=== PATIENT | female | born 1930 | race Caucasian/White ===

== ENCOUNTER → 2016-09-08 | Outpatient (CLI) | payer MEDICARE ==
[~2016-09-08] MED LIST: ASPIR-LOW81 MG PO; ATENOLOL25 MG PO; ATENOLOL50 MG PO; ATIVAN0.5 MG PO; BIOTENE ORAL44.3 ML MM; CALCIUM 600600 M2 PO; CARAFATE1 G1 PO; COMPLEXED POTAS99 MG PO; LASIX20 MG PO; LASIX40 MG PO; LISINOPRIL5 MG PO; MACROBID100 M1 PO; MULTI VITAMINS1 TAB PO; PERCOCET 325 MG1 TA2 PO; POTASSIUM '99'620 MG PO; POTASSIUM CHLO10 ME5 PO; PROTONIX40 MG PO; VITAMIN D31000 IU PO
== END | disposition home or self-care (01) ==
LOC: CT 03:14
DX: K57.30 Diverticulosis of large intestine without perforation or abscess without bleeding (principal); C15.9 Malignant neoplasm of esophagus, unspecified; I70.0 Atherosclerosis of aorta; M81.0 Age-related osteoporosis without current pathological fracture

== ENCOUNTER 2017-09-19 14:58 | Inpatient (IN) | payer OTHER ==
[~2017-09-19] VITALS: Ht 152.4 cm; Wt 51.0 kg
--- NOTE | ~2017-09-19 | CON ---
[place], [place] REPORT OF CONSULTATION NAME: ERYN PRICE [facility] #: [id number] UNIT #: [id number] ROOM: 508 DOCTOR: IGNACIO VILLARREAL MD BIRTHDATE: [birth year] DOS: 09/20/2017 INPATIENT CONSULT NOTE CHIEF COMPLAINT: Right hip pain. HISTORY OF PRESENT ILLNESS: This is a pleasant 86-year-old female, who had a fall last evening at home. She came into the Emergency Room where she was diagnosed with a right hip intertrochanteric hip fracture. She was using a walker at home last evening and was taking a few steps backwards when she fell. She denies any lightheadedness. She did not strike her head nor lose consciousness. She got pain in the right groin and over the lateral aspect of the hip. It is moderate, about 5 on a scale of 1-10, 10 being the worst. Her daughter is in the room with her this morning. She does have some pain in the right knee as well. No pain in the ankle. No pain in the left leg. She does have a history of esophageal cancer and she has lost about 70 pounds in the last year. She does use a walker at all times to get around. She also has a history of osteoporosis, prior pelvic fracture, congestive heart failure, rheumatoid arthritis, urinary tract infection. She has not used tobacco products. PAST MEDICAL HISTORY AND SURGICAL HISTORY: 1. Congestive heart failure. 2. Status post lumbar kyphoplasty. 3. History of pelvic fracture. 4. Hiatal hernia. 5. History of bleeding ulcer. 6. History of esophageal cancer status post radiation treatments with possible recurrence of cancer. 7. Hypertension. 8. Mitral regurgitation. 9. Mitral valve prolapse. 10. Osteoporosis. 11. Rheumatoid arthritis. 12. History of urinary tract infection. 13. Status post cholecystectomy. 14. Status post hysterectomy. SOCIAL HISTORY: She lives at home. She uses a walker. No tobacco use. No illicit drug use. She is retired. ALLERGIES: To medicine, ROFECOXIB and FENTANYL. REVIEW OF SYSTEMS: She does have weight loss as noted above. No unexpected weight gain. No fevers, no chills, no fatigue. No anxiety, no depression. No hematuria. PHYSICAL EXAMINATION: GENERAL: Her general appearance is well. She is oriented to person, place and time. Her mood is euthymic. Her affect is appropriate. VITAL SIGNS: Blood pressure is 145/65. Pulse is 95. She is afebrile at 98.0. [place], [place] REPORT OF CONSULTATION NAME: ERYN PRICE UNIT #: [id number] ROOM: 508 DOCTOR: IGNACIO VILLARREAL MD BIRTHDATE: [birth year] Examining the right hip, the skin is intact about the right hip and right knee. Thigh is soft. Calf is soft and nontender. Aruna's signs negative. She can flex and extend the right ankle against resistance. She grossly feels light touch sensation throughout her toes. No tenderness to palpation over the left knee, left ankle, and left hip. X-rays of the right hip and knee are reviewed showing osteopenia, right hip intertrochanteric fracture. LABORATORY DATA: Reviewed. White count 6.6, H and H 10 and 32, platelets are 122. INR is 1.0. Albumin is 3.0. UA is reviewed showing 1+ bacteria. ASSESSMENT: An 86-year-old female with multiple medical comorbidities with right hip intertrochanteric fracture for intramedullary nailing. The patient does have intertrochanteric hip fracture. I reviewed this with the patient and with the daughter. I talked to them about interventions. I talked about nonoperative management. Risks here would include bedsores, blood clots, emboli, ulcerations, pneumonia, and . Surgical option would be fixation with intramedullary nail. She is not a candidate for a hemiarthroplasty as this is not the fracture pattern for that surgery. The surgical plan will be to make an incision and to insert a guidewire down the middle of the bone after reducing the fracture. I then would insert the nail over the wire and locked it with a lag screw into the femoral head. Risks of the surgery include blood clot, pulmonary embolus, infection, hardware failure, nonunion, malunion, need for revision surgery, permanent limp, loss of ability to ambulate, , and other risks. I think the risk of is at least 30% if not higher at 1 year based on the literature of hip fracture survival. She is probably above 30% given the number of medical comorbidities. She is at high risk for a nonunion or malunion and hardware failure based on the fact that she got osteoporosis, possible recurrence of cancer, low albumin suggesting malnourishment, and she is an elderly female. All of these work against biology of fracture healing and I explained that to the patient and to the daughter. Despite all of the risks, nonoperative management is really not a viable option for her because it would really condemn her to being in bed for a long time, which would be probably mortal for her. The patient and the daughter did have the opportunity to ask me questions. They understand the risks. They would like to proceed with the surgery. After a full risks and benefit discussion, informed consent was signed at the bedside. The daughter signed for her mom as the patient is unable to sign due to her poor eyesight and poor flatwork tier ability. I did explain to the patient and to the family prior to signing surgical consent that I am here in [place] [address] Colon, my partner, is here the other days. Therefore, if they have a problem, it is possible that I [place], [place] REPORT OF CONSULTATION NAME: ERYN PRICE UNIT #: [id number] ROOM: 508 DOCTOR: IGNACIO VILLARREAL MD BIRTHDATE: [birth year] am not in town and that I am in [place], [place] where I spent the rest of my time. They will see Dr. Colon in that case. There are times when Dr. Colon is not here and there is no orthopedic coverage in which case they may need to be transferred to another hospital. Family understands this, they understand who I am and that I am only here 1 week per month. I did give them my cell phone number, , so that they can contact me at any time. Certainly, whether I am in town or not, I can be available to them to help triage problems and answer questions they may have. Family is comfortable with me proceeding with the surgery today. Ignacio Villarreal MD CM:CONSTR:REPORT OF CONSULTATION 0919 09/21/17 0053 interface
--- NOTE | ~2017-09-19 | PR ---
[place], [place] PROGRESS NOTE NAME: ERYN PRICE UNIT #: [id number] ROOM: 508 DOCTOR: SUREKHA VILLARREAL MD BIRTHDATE: [birth year] DOS: 09/21/2017 SUBJECTIVE: The patient did well overnight. She is resting comfortably in bed. Daughter is at the bedside. OBJECTIVE: VITAL SIGNS: This morning are stable. Temperature is 97.5. Pulse is 113. Blood pressure 108/54. EXTREMITIES: I examined the right thigh. Thigh is soft. Dressing is clean and dry. Distally, she can flex and extend the toes and ankle. Toes are warm and well perfused. LABORATORY DATA: White count is 9.7. H and H are 7.4 and 23.3, which are decreased from 10 and 32. Platelets are 104. ASSESSMENT: An 86-year-old female status post right hip intramedullary nailing, postop day #1. PLAN: 1. Perform dressing change on Sunday, 09/24. Replace existing dressing with a clean and dry dressing. This should be changed once daily beginning on Sunday, 09/24. 2. Weightbearing as tolerated, right leg. 3. Physical therapy to work with the patient. 4. DVT prophylaxis with Lovenox 40 mg subcutaneously daily for 3 weeks. 5. Finished 24 hours of IV antibiotics this afternoon. 6. Follow up in Orthopedic Surgery Clinic the week of 10/08 to 10/12 for repeat x-rays and clinical exam. Please call to make an appointment. I reviewed this plan with the sister and the patient. They are comfortable with it. My cell phone number is [phone]. Anyone is welcome to contact me with any questions about this patient's care. I am not here this weekend and I explained that to the patient and the family, but I am available by phone for questions. [place], [place] PROGRESS NOTE NAME: ERYN PRICE UNIT #: [id number] ROOM: 508 DOCTOR: SUREKHA VILLARREAL MD BIRTHDATE: [birth year] Surekha Villarreal MD CM:PNTRANS [id number] SUREKHA VILLARREAL MD 09/21/17 2143 interface
--- NOTE | ~2017-09-19 | O ---
[place], [place] OPERATIVE NOTE NAME: ERYN PRICE [facility] #: [id number] UNIT #: [id number] ROOM: 508 DOCTOR: SUREKHA RODGERS MD BIRTHDATE: [birth year] DOS: 09/20/2017 PREOPERATIVE DIAGNOSIS: Right hip intertrochanteric femur fracture. POSTOPERATIVE DIAGNOSIS: Right hip intertrochanteric femur fracture. PROCEDURE: Insertion of intramedullary nail, right hip intertrochanteric fracture. IMPLANTS: Synthes, TFN nail, short, 130 degree angle, 13 mm diameter. ANESTHESIA: General. BLOOD LOSS: 75 mL. ATTENDING PHYSICIAN: Surekha Rodgers MD INDICATIONS: This is a pleasant 86-year-old female who had a fall last evening at home and suffered a right hip intertrochanteric femur fracture. Of note, the patient does have multiple medical comorbidities including congestive heart failure, history of lumbar spine compression fractures, multiple, suggesting significant osteopenia, history of esophageal cancer with possible recurrence, osteoporosis, and rheumatoid arthritis. This morning, I met with the patient and the family and I talked to him about the risks and benefits of surgical intervention. The risks are significant. The risks include , blood clot, pulmonary embolus, infection, nonunion, malunion, hardware failure, need for revision surgery, periprosthetic fracture, permanent limp, and other risks. The risk of is significant, especially given her age and medical comorbidities. I think it at least 30% if not higher. Family and the patient understands the risks. We did consider nonoperative management, but have declined in favor of surgery. I did explain to the family that I am here in [place] 1 week a month. The other weeks, I am in [place], [place]. Dr. Colon, my partner, is here most of the time in [place], however, there are times when [place] has no orthopedic surgery coverage. Therefore, it is possible the patient needs to be transferred if there is no coverage or she may see Dr. Colon if I am not here. Family was comfortable with this and they would like for me to proceed with the surgery. After full risks and benefit discussion, informed consent was signed for right hip intramedullary nailing. DESCRIPTION OF PROCEDURE: The patient was identified as the correct patient in preoperative holding area. She identified the right as the correct side. I marked the right hip. She was brought back to the operating theater where anesthesia was induced without complication. She was placed under the fracture table. The left leg was placed into a well leg mg. The right leg was placed in traction. A timeout was performed confirming correct patient, correct laterality and correct procedure. Antibiotics were given after a small [place], [place] OPERATIVE NOTE NAME: ERYN PRICE UNIT #: [id number] ROOM: 508 DOCTOR: SUREKHA RODGERS MD BIRTHDATE: [birth year] superficial skin incision was made. The procedure was stopped until antibiotics finished infusing. Then, the procedure continued. I made an incision in line with the femur, proximal to the greater trochanter and dissected down to the level of the tip of the trochanter. I used a starting awl to advance to the level of the lesser trochanter. I then checked AP and lateral fluoroscopy, which confirmed excellent fracture reduction and appropriate hardware positioning. I then passed the long guidewire down the femur. The awl was removed. The short nail was opened on the back table and was placed over the guidewire and seated to the appropriate depth. Of note, prior to skin incision, the fracture was reduced prior to any skin incision using combination of traction and internal rotation. AP and lateral fluoroscopy confirmed anatomic fracture reduction. With the nail seated, I then used the lateral targeting device to make an appropriate skin incision laterally and advanced a guide to bone. The guidewire was then drilled into the femoral head. I was a little bit anterior; therefore, the wire was redrilled to be near [id number] in the femoral head. The tip apex distance was definitely less than 25 mm. At this point, lateral cortex was opened with a drill. The guidewire was measured. It measured 90 mm. We then drilled to a depth of 90 mm. The helical blade was then inserted over the guidewire and seated to the appropriate depth. I checked AP and lateral fluoroscopy of the femoral head and the helical blade was fully within the femoral head. At this point, I used the targeting device and made an appropriate skin incision distally and inserted a single distal locking screw through the targeting device. At this point, I then performed compression across the fracture followed by tightening the set screw proximally. At this point, copious irrigation was then passed through all the wounds. Final AP and lateral fluoroscopy was taken confirming anatomic fracture reduction and appropriate hardware positioning. The wound was closed in layers. The deep layer was closed with 0 Vicryl interrupted. Subcutaneous tissues were closed with 2-0 Vicryl interrupted. The skin itself was closed with jose. A sterile dressing was applied. She tolerated the procedure well with no immediate complications. POSTOPERATIVE PLAN: 1. Weightbearing as tolerated, right leg. 2. Consult physical therapy for mobilization. 3. Continue IV antibiotics for 24 hours. 4. DVT prophylaxis, beginning tomorrow, 09/21/2017. 5. Leave surgical dressing on to at least 09/24/2016. 6. Follow up in Orthopedic surgery clinic in 2 weeks with repeat x-rays. I did give family my cell phone number [phone] so that they contact me at any time if they have any questions or problems. Since I am not in [place] 3 weeks of the month, I want to make sure they can reach me if there is an issue. The patient remains at high risk for complication. [place], [place] OPERATIVE NOTE NAME: ERYN PRICE UNIT #: [id number] ROOM: 508 DOCTOR: SUREKHA RODGERS MD BIRTHDATE: [birth year] Surekha Rodgers MD CM:OPRECORD:OPERATIVE NOTE 1600 10 SUREKHA RODGERS MD 09/20/17 171 interface
[~2017-09-19 14:58] MED LIST changes: +CALCIUM + D3 E1 EACH PO; -CALCIUM 600600 M2 PO
[2017-09-19 14:59] VITALS: BP 150/68
[2017-09-19] MEDS ORDERED: TRAMADOL HCL50 MG PO (15:34)
[2017-09-19] MEDS ORDERED: PRILOSEC20 M1 PO (15:35)
[2017-09-19 15:56] LABS: BASO % 0.7 % (0.0-1.0); EOS # 0.2 10*3/uL (0.0-0.4); EOS % 2.6 % (1.0-4.0); HEMATOCRIT 35.5 % (37.0-47.0); HEMOGLOBIN 11.4 g/dl (12.0-16.0); LYMPH # 0.8 10*3/uL (1.3-4.4); LYMPH % 12.3 % (27.0-41.0); MEAN CELL VOLUME 100.6 fl (81.0-99.0); MEAN CORPUSCULAR HGB 32.3 pg (27.0-31.0); MEAN CORPUSCULAR HGB CONC 32.1 g/dl (33.0-37.0); MEAN PLATELET VOLUME 10.3 fl (9.6-12.3); MONO # 0.5 10*3/uL (0.1-1.0); NEUT # 4.6 10*3/uL (2.3-7.9); NEUT % 75.4 % (47.0-73.0); PLATELET COUNT AUTOMATED 130 10*3/uL (130-400); RED BLOOD COUNT 3.53 10*6/uL (4.10-5.10); RED CELL DISTRI WIDTH 15.4 % (0-14.5); WHITE BLOOD COUNT 6.1 10*3/uL (4.8-10.8)
[2017-09-19 16:05] LABS: ACT PARTIAL THROMBO TIME 25.6 SECONDS (20.8-31.5)
[2017-09-19 16:13] LABS: ALBUMIN 3.4 gm/dl (3.1-4.5); ALKALINE PHOSPHATASE 109 U/L (45-117); BUN 12 mg/dl (7-24); CHLORIDE 104 mmol/L (98-107); CREATININE 0.56 mg/dL (0.55-1.02); LIPASE 98 U/L (73-393); POTASSIUM 3.8 mmol/L (3.5-5.1); SGOT/AST 25 IU/L (3-35); SGPT/ALT 17 U/L (12-78); SODIUM 137 mmol/L (136-145); TOTAL PROTEIN 7.4 gm/dL (6.4-8.2)
[2017-09-19 16:15] LABS: TROPONIN I < 0.015 ng/ml (<0.045)
[2017-09-19 16:58] VITALS: BP 151/71
[2017-09-19 17:30] LABS: BILIRUBIN NEGATIVE (NEGATIVE); BLOOD TRACE-INTACT (NEGATIVE); CLARITY SL CLOUDY (CLEAR); COLOR YELLOW (YELLOW); GLUCOSE NEGATIVE (NEGATIVE); KETONE TRACE (NEGATIVE); LEUKO ESTERASE NEGATIVE (NEGATIVE); NITRITE NEGATIVE (NEGATIVE); SPECIFIC GRAVITY >= 1.030 (1.005-1.030); UROBILINOGEN 0.2 E.U./dl (0.2-1.0)
[2017-09-19 17:34] VITALS: BP 138/60
[2017-09-19 17:38] LABS: BACTERIA 1+; MUCOUS 1+
[2017-09-19 18:15] VITALS: BP 135/60
[2017-09-19 19:07] VITALS: BP 170/76
[2017-09-20] VITALS (11 sets, daily range): BP systolic 94–165; BP diastolic 45–77
[2017-09-20 06:26] LABS: BASO % 0.3 % (0.0-1.0); EOS # 0.1 10*3/uL (0.0-0.4); EOS % 2.1 % (1.0-4.0); HEMATOCRIT 32.7 % (37.0-47.0); HEMOGLOBIN 10.5 g/dl (12.0-16.0); LYMPH # 0.9 10*3/uL (1.3-4.4); LYMPH % 13.7 % (27.0-41.0); MEAN CELL VOLUME 99.4 fl (81.0-99.0); MEAN CORPUSCULAR HGB 31.9 pg (27.0-31.0); MEAN CORPUSCULAR HGB CONC 32.1 g/dl (33.0-37.0); MONO # 0.7 10*3/uL (0.1-1.0); MONO % 10.9 % (3.0-9.0); NEUT # 4.8 10*3/uL (2.3-7.9); NEUT % 72.7 % (47.0-73.0); PLATELET COUNT AUTOMATED 122 10*3/uL (130-400); RED BLOOD COUNT 3.29 10*6/uL (4.10-5.10); RED CELL DISTRI WIDTH 15.4 % (0-14.5); WHITE BLOOD COUNT 6.6 10*3/uL (4.8-10.8)
[2017-09-20 06:54] LABS: ALKALINE PHOSPHATASE 98 U/L (45-117); BUN 10 mg/dl (7-24); CHLORIDE 103 mmol/L (98-107); CHOLESTEROL 152 mg/dL (<200); CREATININE 0.49 mg/dL (0.55-1.02); HDL CHOLESTEROL 64 mg/dl (40-60); LDL CHOLESTEROL 75 mg/dL (9-159); PHOSPHOROUS 3.5 mg/dL (2.5-4.9); SGOT/AST 25 IU/L (3-35); SGPT/ALT 17 U/L (12-78); SODIUM 137 mmol/L (136-145); TOTAL PROTEIN 6.9 gm/dL (6.4-8.2); TRIGLYCERIDES 67 mg/dl (<150); VLDL CHOLESTEROL 13 mg/dL (6-40)
[2017-09-20 06:59] LABS: THYROID STIM HORMONE (HS) 0.944 uIU/ml (0.358-4.75)
[2017-09-20 07:01] LABS: ACT PARTIAL THROMBO TIME 25.9 SECONDS (20.8-31.5)
[2017-09-20 08:12] LABS: VITAMIN D, 25-HYDROXY 17.1 ng/mL (30-100)
[2017-09-21] VITALS (20 sets, daily range): BP systolic 85–160; BP diastolic 33–82
[2017-09-21 06:21] LABS: BASO % 0.3 % (0.0-1.0); EOS % 0.2 % (1.0-4.0); LYMPH # 0.9 10*3/uL (1.3-4.4); LYMPH % 9.6 % (27.0-41.0); MEAN CELL VOLUME 102.2 fl (81.0-99.0); MEAN CORPUSCULAR HGB 32.5 pg (27.0-31.0); MEAN CORPUSCULAR HGB CONC 31.8 g/dl (33.0-37.0); MEAN PLATELET VOLUME 10.6 fl (9.6-12.3); MONO # 0.9 10*3/uL (0.1-1.0); NEUT # 7.8 10*3/uL (2.3-7.9); NEUT % 80.4 % (47.0-73.0); PLATELET COUNT AUTOMATED 104 10*3/uL (130-400); RED BLOOD COUNT 2.28 10*6/uL (4.10-5.10); RED CELL DISTRI WIDTH 15.9 % (0-14.5); WHITE BLOOD COUNT 9.7 10*3/uL (4.8-10.8)
[2017-09-21 06:34] LABS: HEMATOCRIT 23.3 % (37.0-47.0); HEMOGLOBIN 7.4 g/dl (12.0-16.0)
[2017-09-21 06:53] LABS: CHLORIDE 110 mmol/L (98-107); SODIUM 142 mmol/L (136-145)
[2017-09-21 07:01] LABS: ALBUMIN 2.3 gm/dl (3.1-4.5); ALKALINE PHOSPHATASE 83 U/L (45-117); BUN 16 mg/dl (7-24); CREATININE 0.78 mg/dL (0.55-1.02); PHOSPHOROUS 4.1 mg/dL (2.5-4.9); SGOT/AST 19 IU/L (3-35); SGPT/ALT 16 U/L (12-78); TOTAL PROTEIN 5.6 gm/dL (6.4-8.2)
[2017-09-21 16:42] LABS: HEMOGLOBIN 7.5 g/dl (12.0-16.0)
[2017-09-22] VITALS (10 sets, daily range): BP systolic 81–121; BP diastolic 37–68
[2017-09-22 00:54] LABS: HEMATOCRIT 24.9 % (37.0-47.0); HEMOGLOBIN 8.4 g/dl (12.0-16.0)
[2017-09-22 06:30] LABS: BASO % 0.2 % (0.0-1.0); EOS # 0.2 10*3/uL (0.0-0.4); EOS % 1.5 % (1.0-4.0); HEMATOCRIT 26.5 % (37.0-47.0); HEMOGLOBIN 8.5 g/dl (12.0-16.0); LYMPH # 1.1 10*3/uL (1.3-4.4); LYMPH % 8.4 % (27.0-41.0); MEAN CORPUSCULAR HGB 31.4 pg (27.0-31.0); MEAN CORPUSCULAR HGB CONC 32.1 g/dl (33.0-37.0); MEAN PLATELET VOLUME 10.7 fl (9.6-12.3); MONO # 0.9 10*3/uL (0.1-1.0); MONO % 6.7 % (3.0-9.0); NEUT # 10.5 10*3/uL (2.3-7.9); NEUT % 82.3 % (47.0-73.0); PLATELET COUNT AUTOMATED 85 10*3/uL (130-400); RED BLOOD COUNT 2.71 10*6/uL (4.10-5.10); RED CELL DISTRI WIDTH 16.6 % (0-14.5); WHITE BLOOD COUNT 12.8 10*3/uL (4.8-10.8)
[2017-09-22 06:32] LABS: MEAN CELL VOLUME 97.8 fl (81.0-99.0)
[2017-09-22 06:39] LABS: CHLORIDE 105 mmol/L (98-107); CREATININE 0.66 mg/dL (0.55-1.02); POTASSIUM 3.8 mmol/L (3.5-5.1); SODIUM 138 mmol/L (136-145)
[2017-09-22 07:09] LABS: BUN 26 mg/dl (7-24)
[2017-09-22 16:20] LABS: BASO % 0.2 % (0.0-1.0); EOS # 0.5 10*3/uL (0.0-0.4); EOS % 4.3 % (1.0-4.0); HEMATOCRIT 24.3 % (37.0-47.0); LYMPH # 1.2 10*3/uL (1.3-4.4); LYMPH % 10.1 % (27.0-41.0); MEAN CELL VOLUME 96.8 fl (81.0-99.0); MEAN CORPUSCULAR HGB 31.9 pg (27.0-31.0); MEAN CORPUSCULAR HGB CONC 32.9 g/dl (33.0-37.0); MEAN PLATELET VOLUME 10.4 fl (9.6-12.3); MONO # 0.8 10*3/uL (0.1-1.0); MONO % 6.2 % (3.0-9.0); NEUT # 9.5 10*3/uL (2.3-7.9); PLATELET COUNT AUTOMATED 81 10*3/uL (130-400); RED BLOOD COUNT 2.51 10*6/uL (4.10-5.10); RED CELL DISTRI WIDTH 16.4 % (0-14.5); WHITE BLOOD COUNT 12.1 10*3/uL (4.8-10.8)
[2017-09-22 19:59] LABS: BASO % 0.2 % (0.0-1.0); EOS # 0.5 10*3/uL (0.0-0.4); EOS % 4.1 % (1.0-4.0); HEMATOCRIT 24.7 % (37.0-47.0); HEMOGLOBIN 8.2 g/dl (12.0-16.0); LYMPH % 8.3 % (27.0-41.0); MEAN CELL VOLUME 96.9 fl (81.0-99.0); MEAN CORPUSCULAR HGB 32.2 pg (27.0-31.0); MEAN CORPUSCULAR HGB CONC 33.2 g/dl (33.0-37.0); MEAN PLATELET VOLUME 10.3 fl (9.6-12.3); MONO # 0.7 10*3/uL (0.1-1.0); NEUT # 9.6 10*3/uL (2.3-7.9); NEUT % 80.8 % (47.0-73.0); PLATELET COUNT AUTOMATED 85 10*3/uL (130-400); RED BLOOD COUNT 2.55 10*6/uL (4.10-5.10); RED CELL DISTRI WIDTH 16.5 % (0-14.5); WHITE BLOOD COUNT 11.8 10*3/uL (4.8-10.8)
[2017-09-23] VITALS (7 sets, daily range): BP systolic 84–129; BP diastolic 32–69
[2017-09-23 01:28] LABS: HEMATOCRIT 29.7 % (37.0-47.0); HEMOGLOBIN 10.1 g/dl (12.0-16.0)
[2017-09-23 06:38] LABS: BASO % 0.3 % (0.0-1.0); EOS # 0.6 10*3/uL (0.0-0.4); EOS % 5.8 % (1.0-4.0); HEMATOCRIT 29.1 % (37.0-47.0); HEMOGLOBIN 9.5 g/dl (12.0-16.0); LYMPH # 0.9 10*3/uL (1.3-4.4); LYMPH % 9.5 % (27.0-41.0); MEAN CELL VOLUME 95.7 fl (81.0-99.0); MEAN CORPUSCULAR HGB 31.3 pg (27.0-31.0); MEAN CORPUSCULAR HGB CONC 32.6 g/dl (33.0-37.0); MEAN PLATELET VOLUME 11.2 fl (9.6-12.3); MONO # 0.8 10*3/uL (0.1-1.0); MONO % 7.9 % (3.0-9.0); NEUT # 7.3 10*3/uL (2.3-7.9); NEUT % 75.6 % (47.0-73.0); PLATELET COUNT AUTOMATED 80 10*3/uL (130-400); RED BLOOD COUNT 3.04 10*6/uL (4.10-5.10); RED CELL DISTRI WIDTH 15.9 % (0-14.5); WHITE BLOOD COUNT 9.6 10*3/uL (4.8-10.8)
[2017-09-23 06:44] LABS: BUN 20 mg/dl (7-24); CHLORIDE 106 mmol/L (98-107); CREATININE 0.46 mg/dL (0.55-1.02); POTASSIUM 3.6 mmol/L (3.5-5.1); SODIUM 137 mmol/L (136-145)
[2017-09-24] VITALS: BP 119/44
[2017-09-24 06:57] LABS: BASO % 0.3 % (0.0-1.0); EOS # 0.4 10*3/uL (0.0-0.4); EOS % 5.3 % (1.0-4.0); HEMATOCRIT 28.1 % (37.0-47.0); HEMOGLOBIN 9.1 g/dl (12.0-16.0); LYMPH # 0.9 10*3/uL (1.3-4.4); MEAN CELL VOLUME 97.2 fl (81.0-99.0); MEAN CORPUSCULAR HGB 31.5 pg (27.0-31.0); MEAN CORPUSCULAR HGB CONC 32.4 g/dl (33.0-37.0); MEAN PLATELET VOLUME 10.4 fl (9.6-12.3); MONO # 0.6 10*3/uL (0.1-1.0); MONO % 8.9 % (3.0-9.0); NEUT # 4.7 10*3/uL (2.3-7.9); NEUT % 70.4 % (47.0-73.0); PLATELET COUNT AUTOMATED 95 10*3/uL (130-400); RED BLOOD COUNT 2.89 10*6/uL (4.10-5.10); RED CELL DISTRI WIDTH 15.8 % (0-14.5); WHITE BLOOD COUNT 6.7 10*3/uL (4.8-10.8)
[2017-09-24 08:00] VITALS: BP 109/44; BP 130/60
[2017-09-24 12:00] VITALS: BP 90/58
[2017-09-24 16:03] VITALS: BP 121/45
[2017-09-24 20:18] VITALS: BP 111/58
[2017-09-25] VITALS: BP 128/59
[2017-09-25 08:00] VITALS: BP 133/57
[2017-09-25 12:00] VITALS: BP 127/48
[2017-09-25] MEDS ORDERED: COLACE100 MG PO (14:02)
[2017-09-25] MEDS ORDERED: TRAMADOL HCL50 MG PO (14:02)
[2017-09-25] MEDS ORDERED: ENOXAPARIN40 MG/0.2 SC (14:02)
[2017-09-25] MEDS ORDERED: VITAMIN D-32000 UNIT PO (14:02)
[2017-09-25] MEDS ORDERED: ATIVAN0.5 MG PO (14:02)
== END 2017-09-25 16:00 | disposition other institution (70) | DRG 480 ==
LOC: ED 14:58 → EDHOLD 18:13 → 5E 18:13
PROVIDERS: Emergency Medicine; Internal Medicine; Internal Medicine Hospice and Palliative Medicine
PROC: 0QS606Z Reposition Right Upper Femur with Intramedullary Internal Fixation Device, Open Approach (ICD-10-PCS; principal; 2017-09-20)
PROC: 30233N1 Transfusion of Nonautologous Red Blood Cells into Peripheral Vein, Percutaneous Approach (ICD-10-PCS; 2017-09-21)
DX: S72.141A Displaced intertrochanteric fracture of right femur, initial encounter for closed fracture (principal); E43 Unspecified severe protein-calorie malnutrition; I95.9 Hypotension, unspecified; D69.3 Immune thrombocytopenic purpura; I11.0 Hypertensive heart disease with heart failure; E87.8 Other disorders of electrolyte and fluid balance, not elsewhere classified; I50.32 Chronic diastolic (congestive) heart failure; D62 Acute posthemorrhagic anemia; D53.9 Nutritional anemia, unspecified; I34.0 Nonrheumatic mitral (valve) insufficiency; I34.1 Nonrheumatic mitral (valve) prolapse; M81.0 Age-related osteoporosis without current pathological fracture; M06.9 Rheumatoid arthritis, unspecified; F41.9 Anxiety disorder, unspecified; R32 Unspecified urinary incontinence; K44.9 Diaphragmatic hernia without obstruction or gangrene; W18.30XA Fall on same level, unspecified, initial encounter; Y93.01 Activity, walking, marching and hiking; R82.71 Bacteriuria; E55.9 Vitamin D deficiency, unspecified; R00.0 Tachycardia, unspecified; R73.9 Hyperglycemia, unspecified; Y92.098 Other place in other non-institutional residence as the place of occurrence of the external cause; Z79.899 Other long term (current) drug therapy; Z79.82 Long term (current) use of aspirin; Z90.49 Acquired absence of other specified parts of digestive tract; Z90.710 Acquired absence of both cervix and uterus; Z82.49 Family history of ischemic heart disease and other diseases of the circulatory system; Z80.0 Family history of malignant neoplasm of digestive organs; Z88.8 Allergy status to other drugs, medicaments and biological substances; Z68.21 Body mass index [BMI] 21.0-21.9, adult

== ENCOUNTER → 2017-10-08 | Outpatient (CLI) | payer OTHER ==
[~2017-10-08] MED LIST changes: +COLACE100 MG PO; +ENOXAPARIN40 MG/0.2 SC; +PRILOSEC20 M1 PO; +TRAMADOL HCL50 MG PO; +VITAMIN D-32000 UNIT PO
== END | disposition home or self-care (01) ==
LOC: ORTHO 03:26
DX: M17.11 Unilateral primary osteoarthritis, right knee (principal); M16.0 Bilateral primary osteoarthritis of hip; M47.894 Other spondylosis, thoracic region; R60.0 Localized edema

== ENCOUNTER → 2018-01-16 | Outpatient (CLI) | payer OTHER | END | disposition home or self-care (01) | LOC: ORTHO 01:09 | DX: S72.141D Displaced intertrochanteric fracture of right femur, subsequent encounter for closed fracture with routine healing (principal); M81.0 Age-related osteoporosis without current pathological fracture; M17.11 Unilateral primary osteoarthritis, right knee; X58.XXXD Exposure to other specified factors, subsequent encounter ==

== ENCOUNTER → 2018-04-04 | Outpatient (CLI) | payer OTHER | END | disposition home or self-care (01) | LOC: US 02:49 | DX: M71.21 Synovial cyst of popliteal space [Baker], right knee (principal); I73.9 Peripheral vascular disease, unspecified ==

== ENCOUNTER 2018-05-08 09:40 | Emergency (ER) | payer OTHER ==
--- NOTE | ~2018-05-08 | EKG ---
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
[2018-05-08 10:15] LABS: BASO # 0.1 10*3/uL (0.0-0.1); BASO % 0.6 % (0.0-1.0); EOS % 0.3 % (1.0-4.0); HEMATOCRIT 32.5 % (37.0-47.0); HEMOGLOBIN 10.3 g/dl (12.0-16.0); LYMPH % 11.9 % (27.0-41.0); MEAN CELL VOLUME 101.2 fl (81.0-99.0); MEAN CORPUSCULAR HGB 32.1 pg (27.0-31.0); MEAN CORPUSCULAR HGB CONC 31.7 g/dl (33.0-37.0); MEAN PLATELET VOLUME 10.4 fl (9.6-12.3); MONO # 0.6 10*3/uL (0.1-1.0); MONO % 7.4 % (3.0-9.0); NEUT # 6.3 10*3/uL (2.3-7.9); NEUT % 79.3 % (47.0-73.0); PLATELET COUNT AUTOMATED 109 10*3/uL (130-400); RED BLOOD COUNT 3.21 10*6/uL (4.10-5.10); RED CELL DISTRI WIDTH 16.4 % (0-14.5)
[2018-05-08 10:29] LABS: ACT PARTIAL THROMBO TIME 23.7 SECONDS (20.8-31.5); INTERNATIONAL NORM RATIO 1.3 (2.0-3.5)
[2018-05-08 10:30] LABS: ALBUMIN 2.9 gm/dl (3.1-4.5); ALKALINE PHOSPHATASE 70 U/L (45-117); BUN 24 mg/dl (7-24); CHLORIDE 101 mmol/L (98-107); CREATININE 0.73 mg/dL (0.55-1.02); POTASSIUM 4.3 mmol/L (3.5-5.1); SGOT/AST 35 IU/L (3-35); SGPT/ALT 16 U/L (12-78); SODIUM 138 mmol/L (136-145); TOTAL PROTEIN 6.8 gm/dL (6.4-8.2)
[2018-05-08 12:42] VITALS: BP 99/46
== END 2018-05-08 14:30 | disposition home or self-care (01) ==
LOC: ED 09:40
PROVIDERS: Emergency Medicine
DX: K62.5 Hemorrhage of anus and rectum (principal); I11.0 Hypertensive heart disease with heart failure; I50.9 Heart failure, unspecified; M81.0 Age-related osteoporosis without current pathological fracture; M06.9 Rheumatoid arthritis, unspecified; Z88.8 Allergy status to other drugs, medicaments and biological substances; Z79.899 Other long term (current) drug therapy; Z85.01 Personal history of malignant neoplasm of esophagus